=== PATIENT | male | born 1940 | race Caucasian/White ===

== ENCOUNTER 2018-09-20 10:49 | Inpatient (IN) | payer MEDICARE ==
[~2018-09-20] VITALS: Ht 172.7 cm; Wt 91.2 kg
--- NOTE | 2018-09-20 11:15 | NUR ---
pt to ed for cough x approx 1 month. pt was recently admitted at [facility] for pna and dc about one month ago. pt states sob since dc. pt placed on 2l nc for ra o2 sat 90%. pt recovered to >94%. all other vss. edmd present for assessment. awaiting orders.
[2018-09-20] MEDS ORDERED: ASPI-496 PO (11:21)
[2018-09-20] MEDS ORDERED: FINA5TAB4 PO (11:21)
[2018-09-20] MEDS ORDERED: OMEP20TA62 PO (11:21)
[2018-09-20] MEDS ORDERED: PRAV40TA2 PO (11:21)
[2018-09-20] MEDS ORDERED: LATA7.5D EACHEYE (11:21)
[2018-09-20] MEDS ORDERED: AMLO10TA8 PO (11:21)
[2018-09-20] MEDS ORDERED: ROPI2TAB4 PO (11:21)
[2018-09-20] MEDS ORDERED: TIMOLOL 0.5% EACHEYE (11:21)
[2018-09-20] MEDS ORDERED: SODIUM CHLORIDE FLUSH 10ML SYR IVF ONE (11:30)
[2018-09-20] MEDS ORDERED: ALBUTEROL/IPRATROPIUM 2.5MG/0.5MG, 3 ML NPPB ONE (11:30)
[2018-09-20 11:46] LABS: BASOPHILS # (AUTO) 0.08 x10^3/uL (0-0.1); BASOPHILS % (AUTO) 1 % (0-1); EOSINOPHILS # (AUTO) 0.29 x10^3/uL (0-0.4); EOSINOPHILS % (AUTO) 4 % (1-7); LYMPHOCYTES # (AUTO) 1.47 x10^3/uL (1-3.4); LYMPHOCYTES % (AUTO) 19 % (22-44); MD NO; MEAN CORPUSCULAR HEMOGLOBIN 29.8 pg (27.5-34.5); MEAN CORPUSCULAR VOLUME 90.1 fL (81-97); MEAN PLATELET VOLUME 6.8 fL (7.4-10.4); MONOCYTES # (AUTO) 0.99 x10^3/uL (0.2-0.8); MONOCYTES % (AUTO) 13 % (2-9); NEUTROPHILS # (AUTO) 5.05 x10^3/uL (1.8-6.8); NEUTROPHILS % (AUTO) 64 % (42-75); PLATELET COUNT 371 x10^3/uL (130-400); RED BLOOD COUNT 5.26 x10^6/uL (4.38-5.82); RED CELL DISTRIBUTION WIDTH 14.1 % (9.4-14.8)
[2018-09-20] MEDS ORDERED: ALBUTEROL/IPRATROPIUM 2.5MG/0.5MG, 3 ML ONE (11:48)
[2018-09-20 11:58] LABS: ALANINE AMINOTRANSFERASE 27 U/L (12-78); ALBUMIN 3.4 g/dL (3.4-5.0); ANION GAP 8 mmol/L (5-15); CALCIUM 9.2 mg/dL (8.5-10.1); CHLORIDE 103 mmol/L (98-107); CREATININE 1.29 mg/dL (0.7-1.3)
[2018-09-20 12:02] LABS: ALKALINE PHOSPHATASE 87 U/L (45-117); BILIRUBIN,TOTAL 0.7 mg/dL (0.2-1.0); TOTAL PROTEIN 8.3 g/dL (6.4-8.2); TROPONIN I < 0.015 ng/mL (0.000-0.045)
--- NOTE | 2018-09-20 12:11 | NUR ---
iv established and labs drawn. pt medicated per jun. vss. no needs expressed. call light within reach. awaiting results at this time.
[2018-09-20] MEDS ORDERED: SODIUM CHLORIDE FLUSH 10ML SYR IVF PRN (12:30)
[2018-09-20] MEDS ORDERED: HYDROcodone/APAP 5/325 TABLET PO PRN (13:00)
[2018-09-20] MEDS: ASPIRIN 81 MG TABLET EC PO SCH (13:00)
[2018-09-20] MEDS ORDERED: GABAPENTIN 300 MG CAPSULE PO PRN (13:00)
[2018-09-20] MEDS: AMLODIPINE 10 MG TAB PO SCH (13:00)
[2018-09-20] MEDS ORDERED: morphine SULFATE 10 MG/ML, 1ML IVPush PRN (13:00)
[2018-09-20] MEDS ORDERED: ACETAMINOPHEN 325 MG TABLET PO PRN (13:00)
[2018-09-20] MEDS ORDERED: ONDANSETRON 2MG/ML, 2ML IVPush PRN (13:00)
[2018-09-20] MEDS ORDERED: hydrALAzine 20 MG/ML, 1ML IVPush PRN (13:00)
--- NOTE | 2018-09-20 14:19 | NUR ---
pt resting in room with family at bs. vss. no needs expressed. call light within reach. awaiting room assignment.
[2018-09-20 14:20] LABS: HCT (SEDRATE) 47.4 % (39.2-51.8)
--- NOTE | 2018-09-20 15:48 | NUR ---
pt resting in room with family at bs. vss. no needs expressed. call light within reach. pt to ct at this time. awaiting room assignment.
[2018-09-20] MEDS ORDERED: ALBUTEROL SULFATE 2.5 MG/3 ML NPPB PRN (16:00)
--- NOTE | 2018-09-20 16:59 | NUR ---
pt resting in room with family at bs. vss. no needs expressed. call light within reach. awaiting room assignment.
[2018-09-20 18:15] VITALS: BP 133/77
[2018-09-20] MEDS ORDERED: ROPINIROLE 1MG TABLET PO SCH (19:00)
[2018-09-20 19:48] VITALS: BP 107/68
[2018-09-20] MEDS: GUAIFENESIN/COD200MG-20MG/10ML LIQUID PO PRN ×2 (19:50→21:22)
[2018-09-20] MEDS ORDERED: PRAVASTATIN 40 MG TABLET PO SCH (21:00)
[2018-09-21 01:10] VITALS: BP 109/72
[2018-09-21 05:48] LABS: BASOPHILS # (AUTO) 0.03 x10^3/uL (0-0.1); BASOPHILS % (AUTO) 0 % (0-1); EOSINOPHILS # (AUTO) 0.01 x10^3/uL (0-0.4); EOSINOPHILS % (AUTO) 0 % (1-7); LYMPHOCYTES % (AUTO) 20 % (22-44); MD NO; MEAN CORPUSCULAR HEMOGLOBIN 30.2 pg (27.5-34.5); MEAN CORPUSCULAR HGB CONC 33.1 g/dL (33.2-36.2); MEAN CORPUSCULAR VOLUME 91.4 fL (81-97); MEAN PLATELET VOLUME 6.8 fL (7.4-10.4); MONOCYTES # (AUTO) 1.32 x10^3/uL (0.2-0.8); MONOCYTES % (AUTO) 14 % (2-9); NEUTROPHILS # (AUTO) 6.26 x10^3/uL (1.8-6.8); NEUTROPHILS % (AUTO) 66 % (42-75); PLATELET COUNT 396 x10^3/uL (130-400); RED BLOOD COUNT 4.74 x10^6/uL (4.38-5.82); RED CELL DISTRIBUTION WIDTH 14.1 % (9.4-14.8)
[2018-09-21 05:51] LABS: ANION GAP 7 mmol/L (5-15); CALCIUM 8.9 mg/dL (8.5-10.1); CHLORIDE 101 mmol/L (98-107); CREATININE 0.96 mg/dL (0.7-1.3)
[2018-09-21] MEDS ORDERED: OMEPRAZOLE 20 MG CAPSULE.DR PO SCH (06:00)
[2018-09-21 08:45] VITALS: BP 131/76
[2018-09-21] MEDS ORDERED: ROPINIROLE 1MG TABLET PO SCH ×2 (09:00→18:00)
[2018-09-21] MEDS ORDERED: LATANOPROST OPHTH 0.005%, 2.5ML EACHEYE SCH (09:00)
[2018-09-21] MEDS ORDERED: TIMOLOL OPHTH 0.5%, 5ML EACHEYE SCH (09:00)
[2018-09-21] MEDS ORDERED: FINASTERIDE 5 MG TABLET PO SCH (09:00)
[2018-09-21] MEDS: AMLODIPINE 10 MG TAB PO SCH (09:44)
[2018-09-21] MEDS: ASPIRIN 81 MG TABLET EC PO SCH (09:45)
[2018-09-21 14:07] LABS: ANA SCREEN NEGATIVE (Negative)
[2018-09-21 15:16] VITALS: BP 134/73
== END 2018-09-21 17:39 | disposition home or self-care (01) | DRG 189 ==
LOC: ED 11:38 → EDIP 12:43 → 3NE 17:50
PROVIDERS: ADMIT Hospitalist; ATTEND Hospitalist
DX: J96.01 Acute respiratory failure with hypoxia (principal); J44.1 Chronic obstructive pulmonary disease with (acute) exacerbation; E87.1 Hypo-osmolality and hyponatremia; J84.9 Interstitial pulmonary disease, unspecified; E11.9 Type 2 diabetes mellitus without complications; E78.5 Hyperlipidemia, unspecified; I10 Essential (primary) hypertension; K21.9 Gastro-esophageal reflux disease without esophagitis; I25.10 Atherosclerotic heart disease of native coronary artery without angina pectoris; I07.1 Rheumatic tricuspid insufficiency; G47.30 Sleep apnea, unspecified; I25.2 Old myocardial infarction; Z79.82 Long term (current) use of aspirin; Z87.891 Personal history of nicotine dependence; Z95.5 Presence of coronary angioplasty implant and graft; Z79.899 Other long term (current) drug therapy; Z90.49 Acquired absence of other specified parts of digestive tract; Z99.81 Dependence on supplemental oxygen
CPT/HCPCS: 36415; 71045; 71250; 80048; 80053; 82164; 83880; 84145; 84484; 85025; 85651; 86038; 86140; 86200; 86431; 87070; 87205; 93005; 93306; 94640; 99285; G0378; J7620; J7512

== ENCOUNTER 2018-10-19 12:17 | Outpatient (CLI) | payer MEDICARE ==
[~2018-10-19 12:17] MED LIST: AMLO10TA8 PO; ASPI-496 PO; FINA5TAB4 PO; LATA7.5D EACHEYE; OMEP20TA62 PO; PRAV40TA2 PO; ROPI2TAB4 PO; TIMOLOL 0.5% EACHEYE
== END 2018-10-19 23:59 | disposition home or self-care (01) ==
LOC: CARD 12:17
PROVIDERS: ATTEND Internal Medicine
DX: R09.02 Hypoxemia (principal)
CPT/HCPCS: 94060; 94618; 94726

== ENCOUNTER 2018-11-09 12:12 | Outpatient (CLI) | payer MEDICARE ==
[~2018-11-09 12:12] MED LIST changes: +REGADENOSON 0.4 MG/5 ML SYRINGE ONE
== END 2018-11-09 23:59 | disposition home or self-care (01) ==
LOC: CFH 12:12
PROVIDERS: ATTEND Registered Nurse
DX: I25.10 Atherosclerotic heart disease of native coronary artery without angina pectoris (principal)
CPT/HCPCS: 78452; 93017; A9502; J2785

== ENCOUNTER → 2019-04-12 | Outpatient (CLI) | payer MEDICARE ==
[~2019-04-12] MED LIST changes: -REGADENOSON 0.4 MG/5 ML SYRINGE ONE
== END | disposition home or self-care (01) ==
LOC: RAD 08:58
PROVIDERS: ATTEND Internal Medicine Pulmonary Disease
DX: R06.02 Shortness of breath (principal)
CPT/HCPCS: 71046; 78582; A9540; A9558